=== PATIENT | female | born 1965 | race Two or more races ===

== ENCOUNTER 2021-10-05 09:15 | Outpatient (CLI) | payer OTHER | END 2021-10-05 09:18 | disposition home or self-care (01) | LOC: SONOGRAMA 09:15 | PROVIDERS: ATTEND Pathology Anatomic Pathology & Clinical Pathology | DX: E04.2 Nontoxic multinodular goiter (principal) ==

== ENCOUNTER 2022-05-21 12:25 | Emergency (ER) | payer OTHER ==
[~2022-05-21] VITALS: Ht 165.1 cm; Wt 74.8 kg
[2022-05-21] MEDS ORDERED: SYNTHROID88 MCG PO (13:39)
== END 2022-05-21 17:18 | disposition home or self-care (01) ==
LOC: ER 12:25
DX: N20.0 Calculus of kidney (principal)

== ENCOUNTER → 2025-05-09 | Emergency (ER) | payer OTHER ==
[~2025-05-09] VITALS: Ht 261.6 cm; Wt 79.4 kg
[~2025-05-09] MED LIST: 0.9 % SODIUM CHLORIDE 1,000 ML IV STA; CEFTRIAXONE SODIUM 1,000 MG VIAL IM STA; CIPRO500 MG PO; FAMOTIDINE/PF 20 MG/2 ML VIAL IV STA; METRONIDAZOLE500 MG PO; OMEPRAZOLE20 M1 PO; ONDANSETRON HCL 2 MG/ML VIAL IV STA; PEPCID AC20 MG PO; SYNTHROID88 MCG PO
[2025-05-09 10:37] LABS: BASO % 0.9 % (0.1-1.2); EOS # 0.01 (0.04-0.54); EOS % 0.2 % (0.7-7.0); LYMPH # 0.92 (1.18-3.74); LYMPH % 19.6 % (19.3-53.1); MEAN PLATELET VOLUME 10.70 fl (9.4-12.4); MONO # 0.32 (0.24-0.82); MONO % 6.8 % (4.7-12.5); NEUT # 3.40 (1.56-6.13); NEUT % 72.3 % (34.0-71.1); RED CELL DISTRIBUTION WIDTH 14.1 % (11.6-14.4)
[2025-05-09 10:40] LABS: URINE APPEARANCE Clear; URINE BILIRRUBIN Negative (NEGATIVE); URINE BLOOD Negative; URINE COLOR Yellow; URINE GLUCOSE Negative (NEGATIVE); URINE KETONE Negative (NEGATIVE); URINE LEUKOCYTE Trace; URINE NITRATE Negative; URINE PROTEIN Negative (NEGATIVE); URINE UROBILINOGEN 0.2 E.U./dl
[2025-05-09 10:43] LABS: URINE BACTERIA 19.1 uL (0.0-1933); URINE EPITHELIAL CELLS 7.6 uL (0.0-38.8); URINE WBC 33.1 uL (0.0-23.2)
[2025-05-09 10:53] LABS: URINE CAST 0.73 uL (0.0-1.40); URINE RBC 1.7 uL (0.0-20.8)
[2025-05-09 11:07] LABS: INR 1.08
[2025-05-09 11:14] LABS: ALT/SGPT 21.0 U/L (12-78); AST/SGOT 14.0 U/L (15-37); BILIRUBIN TOTAL 0.75 mg/dL (0.3-1.2); BUN CREA RATIO 14.0 (7.0-25.0); CREATININE SERUM 0.78 mg/dL (0.55-1.02); GFR 74.83; GLOBULINA 4.0 G/DL (2.4-3.5); GLUCOSE FASTING 116.0 mg/dL (65-100); OSMOLALITY SERUM 283.0 MOSM/KG (275-295)
[2025-05-09 11:16] LABS: ob NEGATIVE (NEGATIVE)
[2025-05-09 11:33] LABS: ERYTHROCYTE SEDIMENTATION RATE 17 mm/hr (0-30)
== END | disposition home or self-care (01) ==
LOC: ER 08:07
PROVIDERS: Physician Assistant Medical
DX: K29.00 Acute gastritis without bleeding (principal); E86.0 Dehydration; K21.9 Gastro-esophageal reflux disease without esophagitis; N39.0 Urinary tract infection, site not specified